=== PATIENT | female | born 1975 | race Asian ===

== ENCOUNTER 2021-08-18 03:07 | Emergency (ER) | payer OTHER, SELFPAY ==
--- NOTE | ~2021-08-18 | XR_ITS ---
XR chest 1V portable DATE: 08/18/2021 04:59 INDICATION: Mild shortness of breath. Epigastric abdominal pain. TECHNIQUE: Portable upright AP chest on 08/18/2021 at 0454 hours COMPARISON: None FINDINGS: Normal heart size. Mild aortic unfolding. No hilar or mediastinal enlargement. Mild infiltrate or atelectasis is suggested in the left lower lobe. The lungs otherwise appear clear. No pleural effusion or pulmonary vascular congestion or pneumothorax. Included skeletal structures are unremarkable. IMPRESSION: Suggestion of mild infiltrate or atelectasis in the left lower lobe Dr. Bauman contacted ER Staff Nurse Nisa by telephone with the findings on 08/18/2021 at 0734 hours. Reviewed, dictated and finalized at [facility]. NGUAL INTERPRETER IMPRESSION: Suggestion of mild infiltrate or atelectasis in the left lower lobe Dr. Bauman contacted ER Staff Nurse Nisa by telephone with the findings on 022 at 0734 hours.
--- NOTE | ~2021-08-18 | CT_ITS ---
EXAMINATION: CT abdomen pelvis w con DATE: 08/18/2021 05:00 INDICATION: Epigastric abdominal pain, radiating to back. Shortness of breath. TECHNIQUE: Computed tomography (CT) of the abdomen and pelvis was performed with 100 cc Omnipaque 350 intravenous contrast. Automated exposure control and iterative reconstruction technique were employe d. Exam dose: 498.45 mGy-cm total exam DLP. COMPARISON: None. FINDINGS: Normal heart size. No pericardial or pleural effusion. The lung bases are clear. Small sliding hiatal hernia. Borderline thickening of the gallbladder wall; consider gallbladder ultrasound examination. The liver , gallbladder, bile ducts, spleen, pancreas, pancreatic duct and adrenal glands are otherwise unremar kable. Approximately 1 cm nonspecific hypoenhancing lesion in the anterior aspect of the lower pole of the l eft kidney. Approximately 5.5 mm fatty density of the anterior mid left kidney, likely a small angiomyolipoma. No urinary tract calculus or hydroureteronephrosis. The urinary bladder distended but appears unremar kable. Uterus and adnexal areas are unremarkable. There is normal caliber of the abdominal aorta. No intraperitoneal or retroperitoneal or pelvic mass lesion or adenopathy or ascites. No evidence of appendicitis. No bowel obstruction, bowel wall thickening, pneumatosis or intraperiton eal free air. Included skeletal structures are unremarkable. IMPRESSION: Small sliding hiatal hernia Borderline thickness of gallbladder wall; consider gallbladder ultrasound examination, particularly g iven the history of epigastric abdominal pain radiating to the back 1 cm indeterminate hypoenhancing lesion of right kidney; consider MRI examination for follow-up CT re nal imaging in 6 months Reviewed, dictated and finalized at [facility]. Reviewed, dictated and finalized at [facility]. Y COUNTER IMPRESSION: Small sliding hiatal hernia Borderline thickness of gallbladder wall; consider gallbladder ultrasound exami nation, particularly given the history of epigastric abdominal pain radiating t o the back 1 cm indeterminate hypoenhancing lesion of right kidney; consider MRI examinati on for follow-up CT renal imaging in 6 months
[2021-08-18 03:45] VITALS: BP 171/114; PULSE 77; RESP 18; TEMP 36.4; O2SAT 97
--- NOTE | 2021-08-18 03:51 | ECG_ITS ---
Measurements Intervals [place] Rate: 74 P: 26 MS: 176 QRS: 50 QRSD: 109 T: 40 QT: 385 QTc: 428 Interpretive Statements SINUS RHYTHM INCOMPLETE RIGHT BUNDLE BRANCH BLOCK BASELINE ARTIFACT- II, III, AVF BORDERLINE ECG Electronically Signed On 08-18-2021 6:29:08 [employer]LL[employer] HAND by Pablo Lieberman D.O.
[2021-08-18 04:15] LABS: Basophils Absolute Auto 0.04 K/mm3 (0.00-0.10); Basophils Percent Auto 0.3 % (0.0-1.0); Eosinophils Percent Auto 0.8 % (1.0-6.0); Hematocrit 40.6 % (35.0-49.0); Hemoglobin 13.4 g/dL (12.0-15.0); Immature Granulocyte Absolute 0.04 K/mm3 (0.00-0.00); Immature Granulocyte Percent A 0.3 % (0.0-0.0); Lymphocytes Absolute Auto 1.41 K/mm3 (1.10-4.50); Lymphocytes Percent Auto 11.2 % (18.0-42.0); Mean Corpuscular Hemoglobin 31.2 pg (27.0-31.0); Mean Corpuscular Volume 94.4 fL (78.0-102.0); Mean Platelet Volume 9.4 fl (9.2-11.8); Monocytes Absolute Auto 0.64 K/mm3 (0.10-0.90); Monocytes Percent Auto 5.1 % (2.0-11.0); Neutrophils Absolute Auto 10.4 K/mm3 (1.7-7.2); Neutrophils Percent Auto 82.3 % (50.0-70.0); Platelet Count Result 251 K/mm3 (150-420); Red Cell Distribution Width 11.3 % (11.6-14.4); White Blood Count 12.6 K/mm3 (4.8-10.8)
[2021-08-18] MEDS: SODIUM CHLORIDE 0.9% IV 500 ML 999 ML IV CONT (04:24)
[2021-08-18] MEDS: PANTOPRAZOLE SODIUM IV 40 MG VIAL IV PUSH (04:24)
[2021-08-18] MEDS: ONDANSETRON INJ 4 MG/2 ML VIAL IV PUSH (04:24)
[2021-08-18 04:32] LABS: Alanine Aminotransferase 83 U/L (14-59); Albumin Level 3.6 g/dL (3.4-5.0); Alkaline Phosphatase 73 U/L (46-116); Anion Gap 10 mmol/L (8-16); Aspartate Amino Transferase 81 U/L (15-37); Bilirubin,Total 0.3 mg/dL (0.00-1.00); Blood Urea Nitrogen 11 mg/dL (7-18); Calcium 9.3 mg/dL (8.5-10.1); Carbon Dioxide 28 mmol/L (21-32); Chloride 103 mmol/L (98-108); Estimated CRCL calculation 85 ml/min; Estimated Glomerular Filt Rate > 60; Glucose 107 mg/dL (70-99); Lipase 70 U/L (73-393); Osmolality Calculated 291 mOsm/kg (285-295); Potassium 3.4 mmol/L (3.5-5.1); Sodium 141 mmol/L (136-145); Total Protein 7.4 g/dL (6.4-8.2); Troponin I 4.1 ng/L (0.00-60.4)
[2021-08-18 04:35] LABS: Lactic Acid Reflex 1.3 mmol/L (0.4-2.0)
--- NOTE | 2021-08-18 04:40 | PC.NURSE ---
pt to X-Ray via stretcher at this time. Pt. remains improved on ABD pain.
--- NOTE | 2021-08-18 04:56 | PC.NURSE ---
Pt returned from x-ray at this time. Up to bathroom ambulatory w/o diff.
[2021-08-18] MEDS: cloNIDine HCL 0.2 MG TABLET PO (05:00)
[2021-08-18 05:27] LABS: Add Urine Microscopic? YES; Appearance Urine Clear (Clear); Bilirubin Urine Negative (Negative); Blood Urine Negative (Negative); Color Urine Light Yellow (Yellow); Glucose Urine UA Negative (Negative); Ketones Urine Negative (Negative); Leukocyte Esterase Ur 1+ LEU/UL (Negative); Nitrate Urine Negative (Negative); Protein Urine Negative (Negative); Urobilinogen Urine 0.2 mg/dL (0.2-1.0)
[2021-08-18 05:34] LABS: Bacteria Urine Trace /hpf; RBC Urine 0-2 /hpf (0-2); Squamous Epithelial Cell Urine Many /hpf (Few); WBC Urine 0-3 /hpf (0-3)
--- NOTE | 2021-08-18 07:11 | PC.NURSE ---
Pt cont waiting comfortable. Awaiting Rad results. report to Nisa AGUILAR
--- NOTE | 2021-08-18 07:18 | ED.ABDPAIN ---
HPI - Abdominal Pain General Chief Complaint: Abdominal Pain Stated Complaint: adominal pain Time Seen by Provider: 08/18/21 03:09 Source: patient, EMS and RN notes reviewed Mode of arrival: EMS Limitations: no limitations History of Present Illness MD elicited complaint: abdominal pain Pertinent past history: none Onset (ago): hour(s) (6) Pain Consistency: now resolved Location: epigastric and RUQ Severity: mild Pain scale (0-10): 2 Quality: cramping, aching and dull Radiation: none Migration to: no migration Exacerbating factors: nothing Relieving factors: nothing Associated symptoms: nausea Treatments prior to arrival: other (none) Related Data Patient : No Home Medications Medication Instructions Recorded Confirmed hydrochlorothiazide 12.5 mg BYMOUTH DAILY 08/18/21 08/18/21 lisinopril 20 mg BYMOUTH DAILY 08/18/21 08/18/21 montelukast 10 mg BYMOUTH HS 08/18/21 08/18/21 Allergies Allergy/AdvReac Type Severity Reaction Status Date / Time No Known Allergies Allergy Verified 08/18/21 04:11 Review of Systems Review of Systems: All systems reviewed & are unremarkable except as noted in HPI and below PMFSH Past Medical History Medical History Gastritis Exam Const: General: healthy appearing, no acute distress and alert Orientation/consciousness: patient oriented x3 HENMT: Head: normal to inspection Ears: external ears normal and TM's normal bilaterally Mouth: Yes lip normal and Yes moist mucous membranes Teeth and gingiva: dentition normal Throat: posterior oropharynx normal Eyes: Conjunctivae: conjunctivae normal Pupils: Equal, round and reactive pupils present EOM: EOMs intact bilaterally Neck: Neck: normal visual inspection Chest: Chest palpation & inspection: normal inspection of the chest Resp: Effort & Inspection: normal respiratory effort Auscultation: clear to auscultation bilaterally Cardio: Rate: regular rate Rhythm: regular rhythm GI: GI Palp: Yes Soft to palpation and Yes Tenderness to palpation present (GI) (minimal epigastric to RUQ abd tenderness.) : General: Yes bladder normal to palpation and Yes no CVA tenderness Back/Spine/Pelvis: Back: no CVA tenderness Skin: General skin exam: normal color Neuro: General: patient oriented x3, moves all extremities, no meningeal signs, no focal motor deficits and CN's II-XI intact bilaterally Extrem: General: normal to inspection and no pedal edema Psych: Appearance: grossly normal and well kempt Mental Status: mental status grossly normal Affect: normal affect Attitude: cooperative Thought content: Yes Normal thought content present Course Course Emergency Course: Pt was stable in the ED. Labs and imaging findings were explained and the pt expressed understanding of what was said. pt had no acute resp symptoms. Reevaluation(s) Date: 08/18/21 Time: 04:05 Vital Signs Vital signs: Vital Signs Temperature 36.4 C L 08/18/21 03:45 Pulse Rate 77 08/18/21 03:45 Respiratory Rate 18 08/18/21 03:45 Blood Pressure 171/114 H 08/18/21 03:45 Pulse Oximetry 97 08/18/21 03:45 Temperature 36.4 C L 08/18/21 03:45 Pulse Rate 63 08/18/21 07:38 Respiratory Rate 16 08/18/21 07:38 Blood Pressure 114/88 08/18/21 07:38 Pulse Oximetry 98 08/18/21 07:38 MDM - Abdominal Pain Differential Diagnosis Differential diagnosis: Likely abdominal pain, gastroenteritis, pancreatitis and small bowel obstruction Medical Records Attestation: I reviewed the patient's medical records. Lab Data Attestation: I reviewed the patient's lab results. Result diagrams: 08/18/21 04:12 08/18/21 04:12 Labs: Lab Results 08/18/21 08/18/21 08/18/21 Range/Units 04:12 04:12 04:12 WBC 12.6 H (4.8-10.8) K/mm3 RBC 4.30 (4.20-5.40) M/mm3 Hgb 13.4 (12.0-15.0) g/dL Hct 40.6 (35.0-49.0) % MCV 94.4 (78.0-102.0) fL MCH
[2021-08-18 07:38] VITALS: BP 114/88; PULSE 63; RESP 16; O2SAT 98
[2021-08-18 07:55] VITALS: PULSE 58; RESP 16; O2SAT 100
== END 2021-08-18 08:08 | disposition home or self-care (01) ==
PROVIDERS: Emergency Provider Emergency Medicine
DX: K29.00 Acute gastritis without bleeding (principal); N39.0 Urinary tract infection, site not specified
CPT/HCPCS: 36415; 71045; 74177; 80053; 81001; 83605; 83690; 84484; 85025; 87086; 93005; 96361; 96374; 96375; 99283; 99284; A9270; C9113; J2405; J7040; Q9967